=== PATIENT | male | born 1960 | race Caucasian/White ===

== ENCOUNTER 2021-03-15 12:08 | Inpatient (IN) ==
[2021-03-15] MEDS ORDERED: FUROSEMIDE 10 MG/ML VIAL IV ONE ×3 (12:29→14:14)
--- NOTE | 2021-03-15 12:45 | ERNOTE ---
Dyspnea - Date Date of Service: 03/15/21 - General Presenting Symptoms: shortness of breath Time Seen by Provider: 03/15/21 12:16 Source: patient Exam Limitations: no limitations - Immun/Allergies/Home Medications Allergies/Adverse Reactions: Allergies No Known Allergies Allergy (Verified 03/15/21 15:59) Home Medications: HOME MEDICATIONS atorvastatin 10 mg tablet 10 mg PO DAILY #30 tab 05/21/20 [Last Taken Unknown] dapagliflozin 10 mg-metformin ER 1,000 mg tablet,extended release 24hr 1 tab PO DAILY #30 ea 05/21/20 [Last Taken Unknown] lisinopril 10 mg tablet 10 mg PO DAILY #30 tab 05/21/20 [Last Taken Unknown] pioglitazone 45 mg tablet 45 mg PO DAILY #30 tab 05/21/20 [Last Taken Unknown] glipizide 2.5 mg tablet, extended release 24 hr 2.5 mg PO DAILY #30 tab 06/14/20 [Last Taken Unknown] hydrochlorothiazide 12.5 mg capsule 12.5 mg PO DAILY #30 cap 10/17/20 [Last Taken Unknown] - History of Present Illness Narrative: This patient is a 60-year-old gentleman who is here with shortness of breath. He indicates that he has been short of breath for the past year. He has seen Dr. Shannon for this in the past. They were discussing getting a work-up. He said the last week it has been worse. He has put on 20 pounds in the past 2 months. He went to the walk-in clinic today and was sent here because his saturation was 47%. He has not had a fever. He has a chronic cough. He quit smoking 20 years ago. He is not on oxygen at home. He denies any other cold symptoms. He has no chest pain or palpitations. He has chronic edema of the extremities. He takes HCTZ. Review of Systems - Review of Systems Constitutional: Absent: recent illness, fever, weight loss EYE: Present: blurred vision. Absent: double vision ENT: Absent: ear pain, nose congestion, nasal drainage, sore throat Respiratory: Present: shortness of breath, cough Cardiology: Absent: chest pain, palpitations Gastrointestinal/Abdominal: Absent: nausea, vomiting, diarrhea, constipation, abdominal pain Genitourinary: Absent: frequency, pain, dysuria, hematuria Musculoskeletal: Present: back pain - Chronic. Absent: neck pain Neurological: Absent: headache, dizziness/light-headedness Endocrine: Present: other - He is diabetic. Hematologic/Lymphatic: Present: other - No active bleeding Psych: Present: no symptoms reported Medical History (Last Reviewed 03/15/21 @ 12:41 by Nikolay Mendoza MD) Back pain (Chronic) Hypertension (Chronic) Obesity (Chronic) Diabetes (Chronic) Surgical History: Surgical History (Last Reviewed 03/15/21 @ 12:41 by Nikolay Mendoza MD) H/O colonoscopy Onset Date: ~2013 about 10 years ago- [place]. was normal. H/O hernia repair twice H[facility] Family History: Family History (Last Reviewed 03/15/21 @ 12:41 by Nikolay Mendoza MD) Mother Cancer not sure of what Father Cancer not sure of what Brother Cancer 3 of cancer: 1 lung, 1 throat, last one committed suicide when he found out he had cancer Social History: (Last Reviewed 03/15/21 @ 12:41 by Nikolay Mendoza MD) Social History: Marital status: current occupational status: retired current occupation: retired- [email or web address] Service: No Tobacco: Smoking Status: Former smoker how long ago did patient quit smoking: quit over 10 years ago Alcohol: alcohol intake: current Alcohol type: beer alcohol intake frequency: a few times a month details: 4-6 a day on the weekend Substance Use: substance use type: does not use Physical Exam - Physical Exam General Appearance: Present: alert, mild distress - He is able to speak in almost full sentences., obese Head Exam: Present: normal inspection, no evidence of injury Eye Exam: Normal inspection: bilateral Ears, Nose, Throat: Present: normal ENT inspection Neck: Present: normal inspection - Obese, supple Respiratory: Present: no accessory muscle use, lungs clear - Although limited by his decreased air movement.. Absent: no respiratory distress - Tachypneic, normal breath sounds - Markedly decreased breath sounds Cardiovascular/Chest: Present: regular rate, rhythm, no murmur Gastrointestinal/Abdominal: Present: nontender, abnormal bowel sounds - Difficult to auscultate., distended, other - Pitting edema of the lower half of the abdomen Back Exam: Present: normal inspection, other - Pitting edema of the lower back Extremity Exam: Present: non-tender, pedal edema - To the lower trunk Neurological Exam: Present: alert, oriented, normal mood/affect Skin Exam: Present: warm/dry, other - The skin is suki, possibly cyanotic. Progress - Results and Orders Patient's Lab Results:: I have reviewed the patient's lab results. Results and Orders: Laboratory Tests 03/15/21 03/15/21 03/15/21 12:29 12:40 12:40 WBC 13.8 H RBC 6.50 H Hgb 18.2 H Hct 59.9 H MCV 92.2 MCH 28.0 MCHC 30.4 L RDW 18.4 H Plt Count 292 MPV 9.9 Immature Gran % (Auto) 0.50 H Immature Gran # (Auto) 0.07 H Neutrophils % 87.5 H Lymphocytes % 4.6 L Monocytes % 7.2 Eosinophils % 0.0 Basophils % 0.2 Nucleated RBC % 0.0 Neutrophils # 12.1 H Lymphocytes # 0.64 L Monocytes # 1.0 Eosinophils # 0.0 Absolute Basophils 0.0 pCO2 89.8 H* pO2 73.5 L HCO3 29.1 H Total CO2 31.9 H Base Excess -3.8 L ABG pH 7.13 L* ABG O2 Sat (Measured) 88.7 L Sodium 132 Plasma Sodium 134 Potassium 5.3 H D Chloride 96 L Carbon Dioxide 29.0 Anion Gap 12.3 BUN 58 H D Creatinine 1.90 H D Est GFR (Non-Af Amer) 39 L D BUN/Creatinine Ratio 30.5 H Random Glucose 203 H Calcium 8.7 Calcium Adj for Albumin 9.1 Total Bilirubin 0.5 AST 16 ALT 33 Alkaline Phosphatase 59 Troponin I 0.033 B-Natriuretic Peptide 7066 H Total Protein 6.8 Albumin 3.1 L Laboratory Tests 03/15/21 12:40 D-Dimer 0.53 H - Vital Signs Patient's Vital Signs:: I have reviewed the patient's vital signs. - EKG EKG #1 EKG read: Interp. by me EKG Comments: Sinus rhythm with one PAC Rate [address]-T wave changes No old EKG in our system for comparison. - X-Ray X-Ray #1 X-Ray: chest Interpretation: Interp. by me X-ray Comments: Portable AP Markedly low lung volumes. Cardiomegaly No gross infiltrates Limited due to body habitus. Plan - Plan Plan: The patient initially appear suki or cyanotic. He was to kick Ilia but able to speak in an almost full sentences. He seemed to have normal mental functioning. The initial blood gas showed him to be asymptotic with CO2 retention. He was started on BiPAP. The repeat ABG showed minimal improvement. The patient himself appeared to be feeling better. He said that he was feeling better and had been able to sleep a little bit. He continued to have normal mentation. He was less dyspneic. He had received a total of 40 mg of Lasix. He had no urine output. He reported that he had been urinating normally. Urinary catheter, bladder scan or abdominal CT have not been done at this time. He was given an extra 40 mg of Lasix. Changes were made to his BiPAP settings. I spoke with the patient about hospitalization. He prefers to go home but is agreeable to staying in the hospital. I spoke with Dr. Meredith. He agreed to admit the patient. Departure Clinical Impression: Acute respiratory failure, Fluid retention, ELENA (acute kidney injury), Obesity Diabetes Qualifiers: Diabetes mellitus type: type 2 Diabetes mellitus director long term care insulin use: without assisted use Diabetes mellitus complication status: without complication Qualified Code(s): E11.9 - Type 2 diabetes mellitus without complications Hypertension Qualifiers: Hypertension type: essential hypertension Qualified Code(s): I10 - Essential (primary) hypertension - Departure Disposition: Still a patient Condition: Poor
[2021-03-15 12:48] LABS: Hematocrit 59.9 % (42.0-52.0); Hemoglobin 18.2 gm/dL (13.5-18.0); Mean Cell Volume 92.2 fl (78-100); Mean Corpuscular Hgb Conc 30.4 g/dl (32-36); Mean Platelet Volume 9.9 fl (8-11.3); Neutrophil # 12.1 K/mm3 (1.3-6.0); Neutrophil % 87.5 % (42-75.0); Platelet Count 292 K/mm3 (150-450); Red Cell Distribution Width 18.4 % (11.5-14.0); White Blood Count 13.8 K/mm3 (4.0-10.5)
[2021-03-15 13:09] LABS: Albumin * 3.1 gm/dl (3.4-5.0); Anion Gap 12.3 mmol/L (6.8-13.8); BUN/Creatinine Ratio 30.5 (9.0-21.6); Bilirubin, Total 0.5 mg/dL (0.0-1.1); Ca. Corrected For Albumin 9.1 mg/dL (8.4-10.2); Calcium * 8.7 mg/dL (7.9-10.9); Potassium 5.3 mmol/L (3.4-4.6); Total Protein 6.8 gm/dL (6.2-8.2)
[2021-03-15 13:10] LABS: Troponin I 0.033 ng/mL (0.00-0.10)
[2021-03-15] MEDS ORDERED: FUROSEMIDE 10 MG/ML VIAL ONE (13:56)
[2021-03-15] MEDS ORDERED: LEVOFLOXACIN 750 MG TABLET PO ONE (18:46)
--- NOTE | 2021-03-15 18:56 | HP ---
Chief Complaint - Chief Complaint Date of Service: 03/15/21 Time of Service: 18:56 Chief Complaint: Shortness of breath, hypoxia History of Present Illness: 60-year-old male presented to the hospital yesterday with shortness of breath and chronic cough. Initially seen in the walk-in clinic. Was found to be satting in the mid 40s to low 50s and was brought over to the ER. Patient with history of hyperlipidemia, diabetes, and hypertension. Initial work-up in the ER showed him to have an elevated white count of 13.8 with a left shift at 87.5. He also had an elevated hemoglobin at 18.2 and hematocrit of 59.9. Initial blood gas abdomen with a PCO2 of 89.8, and ABG O2 sat of 88.7 and a pH of 7.13. Patient has no known history of COPD but has a 16-smpa-reet history and likely is a chronic CO2 retainer. Patient had an elevated BNP at 7066 which is the only one on file. Patient with pitting edema 2+ just below his knees bilaterally. Patient states he is a chronic edema but has worsened over last 2 weeks. Patient states that he has been having issues with his breathing for the last couple of months but has seen an acute change in last 2 weeks. Patient was to be worked up by his PCP but this is not happened yet due to what ever reason. Patient's CHEM panel also showed him to have a pretty drastic change in his kidney function. Last labs were obtained over 3 months ago and showed him to have a normal creatinine and GFR and upon presentation his creatinine was 1.9 and his GFR was 39. Patient was started on BiPAP and repeat labs after a little over 3 hours on this showed his CO2 to come down to 77.6 and his pH to increase to 7.18. His ABG O2 sats also improved to 94.2. Patient's chest x-ray in the ER showed a right lower lobe consolidation concerning for pneumonia but I am unsure due to his body habitus and his poor intake if this is atelectasis. Patient has had a productive cough though but no fevers. Patient's picture concerning for likely new onset CHF of unknown type, likely a COPD with chronic hypercapnia, as well as possible pneumonia. Patient was admitted to the floor for acute respiratory distress and BiPAP was continued. Patient was also given 80 mg of IV Lasix in the ER in hopes to unload some of the fluid that is obviously on him to improve his respiratory status. When evaluated patient states that he was starting to feel better with the BiPAP and his breathing was becoming much better and is oxygen saturation returned to normal. Patient's blood sugar was also elevated in the ER at 203. Patient is alert vital signs are relatively within normal limits aside from some tachypnea which is understandable as he is try to block his CO2. Medical History (Last Reviewed 03/15/21 @ 12:41 by Nikolay Mendoza MD) Back pain (Chronic) Hypertension (Chronic) Obesity (Chronic) Diabetes (Chronic) Surgical History: Surgical History (Last Reviewed 03/15/21 @ 12:41 by Nikolay Mendoza MD) H/O colonoscopy Onset Date: ~2013 about 10 years ago- [place]. was normal. H/O hernia repair twice H/O knee surgery [facility] twice right knee Family History: Family History (Last Reviewed 03/15/21 @ 12:41 by Nikolay Mendoza MD) Mother Cancer not sure of what Father Cancer not sure of what Brother Cancer 3 of cancer: 1 lung, 1 throat, last one committed suicide when he found out he had cancer Social History: (Last Updated 03/15/21 @ 16:06 by Melyssa Parker RN) Social History: Marital status: current occupational status: retired current occupation: retired- [employer] Service: No Tobacco: Smoking Status: Former smoker how long ago did patient quit smoking: quit over 10 years ago Alcohol: alcohol intake: current Alcohol type: beer alcohol intake frequency: a few times a week details: 4-6 a day on the weekend Substance Use: substance use type: does not use Review Of Systems (GEN) - Review of Systems Generalized/Overall Review: Absent: Weakness, Chills, Fever EENTM: Present: No Symptoms Reported Respiratory: Present: Cough, Shortness of Breath. Absent: Wheezing Cardiac: Present: Edema - Bilateral legs, Palpitations. Absent: Chest Pain Abdominal: Present: No Symptoms Reported Genitourinary: Present: No Symptoms Reported Musculoskeletal: Present: No Symptoms Reported Neurological: Present: No Symptoms Reported Skin: Present: No Symptoms Reported Immunizations: IMMUNIZATION HX Immunizations Up to Date Yes History of Influenza Vaccine More Information Required Hx Pneumococcal Vaccination More Information Required Allergies/Adverse Reactions: Allergies Allergy/AdvReac Type Severity Reaction Status Date / Time No Known Allergies Allergy Verified 03/15/21 15:59 Home Medications: HOME MEDICATIONS atorvastatin 10 mg tablet 10 mg PO DAILY #30 tab 05/21/20 [Last Taken Unknown] dapagliflozin 10 mg-metformin ER 1,000 mg tablet,extended release 24hr 1 tab PO DAILY #30 ea 05/21/20 [Last Taken Unknown] lisinopril 10 mg tablet 10 mg PO DAILY #30 tab 05/21/20 [Last Taken Unknown] pioglitazone 45 mg tablet 45 mg PO DAILY #30 tab 05/21/20 [Last Taken Unknown] glipizide 2.5 mg tablet, extended release 24 hr 2.5 mg PO DAILY #30 tab 06/14/20 [Last Taken Unknown] hydrochlorothiazide 12.5 mg capsule 12.5 mg PO DAILY #30 cap 10/17/20 [Last Taken Unknown] Exam - Exam Vital Signs: Vital Signs - Last Taken Temp 36.7 C 03/15/21 15:30 Pulse 95 03/15/21 18:50 Resp 34 H 03/15/21 18:50 BP 110/62 03/15/21 15:30 Pulse Ox 97 03/15/21 18:52 Constitutional: Present: Alert, Oriented x3, Moderate distress - Due to respiratory distress, Obese - Central obesity ENT Exam: Present: hearing grossly normal. Absent: nasal congestion, nasal drainage Eye Exam: bilateral eye: normal inspection, EOMI Neck: Present: non-tender, supple Respiratory: Present: lungs clear, respiratory distress, decreased breath sounds - Due to body habitus. Absent: normal breath sounds, crackles Cardiovascular/Chest: Present: regular rate, rhythm, no murmur - Distant heart sounds Peripheral Pulses: dorsalis-pedis (R): 2+, dorsalis-pedis (L): 2+ Abdomen: Present: soft, nontender, nondistended Extremity: Present: lower extremity edema - 2+ pitting edema just below his knees bilaterally Skin Exam: Present: normal color, warm/dry, no cyanosis Neurologic: Present: no motor/sensory deficits, alert, oriented x 3 Appearance: Present: appropriate appearance, appropriate insight Eye contact: Present: cooperative, good eye contact Thoughts: Present: normal thought pattern, normal mood /affect Diagnostic Studies: Abnormal Lab Results 03/15/21 03/15/21 03/15/21 Range/Units 12:29 12:40 12:40 WBC 13.8 H (4.0-10.5) K/mm3 RBC 6.50 H (4.7-6.0) M/mm3 Hgb 18.2 H (13.5-18.0) gm/dL Hct 59.9 H (42.0-52.0) % MCHC 30.4 L (32-36) g/dl RDW 18.4 H (11.5-14.0) % Immature Gran % (Auto) 0.50 H (0.001-0.429) % Immature Gran # (Auto) 0.07 H (0.000-0.0310) K/mm3 Neutrophils % 87.5 H (42-75.0) % Lymphocytes % 4.6 L (20-51) % Neutrophils # 12.1 H (1.3-6.0) K/mm3 Lymphocytes # 0.64 L (1.5-3.5) k/mm3 D-Dimer (0.19-0.49) ugFEU/mL pCO2 89.8 H* (35.0-48.0) mmHg pO2 73.5 L (83.0-108.0) mmHg HCO3 29.1 H (21.0-28.0) mmol/L Total CO2 31.9 H (19.0-24.0) mmol/L Base Excess -3.8 L (-2.0-3.0) mmol/L ABG pH 7.13 L* (7.35-7.45) ABG O2 Sat (Measured) 88.7 L (94.0-98.0) % Potassium 5.3 H D (3.4-4.6) mmol/L Chloride 96 L (97-106) mmol/L BUN 58 H D (6-23) mg/dL Creatinine 1.90 H D (0.4-1.4) mg/dL Est GFR (Non-Af Amer) 39 L D (60-130) mL/min BUN/Creatinine Ratio 30.5 H (9.0-21.6) Random Glucose 203 H (70-110) mg/dL B-Natriuretic Peptide 7066 H (5-175) pg/mL Albumin 3.1 L (3.4-5.0) gm/dl 03/15/21 03/15/21 Range/Units 12:40 14:05 WBC (4.0-10.5) K/mm3 RBC (4.7-6.0) M/mm3 Hgb (13.5-18.0) gm/dL Hct (42.0-52.0) % MCHC (32-36) g/dl RDW (11.5-14.0) % Immature Gran % (Auto) (0.001-0.429) % Immature Gran # (Auto) (0.000-0.0310) K/mm3 Neutrophils % (42-75.0) % Lymphocytes % (20-51) % Neutrophils # (1.3-6.0) K/mm3 Lymphocytes # (1.5-3.5) k/mm3 D-Dimer 0.53 H (0.19-0.49) ugFEU/mL pCO2 77.6 H* (35.0-48.0) mmHg pO2 (83.0-108.0) mmHg HCO3 28.6 H (21.0-28.0) mmol/L Total CO2 31.0 H (19.0-24.0) mmol/L Base Excess -2.8 L (-2.0-3.0) mmol/L ABG pH 7.18 L* (7.35-7.45) ABG O2 Sat (Measured) (94.0-98.0) % Potassium (3.4-4.6) mmol/L Chloride (97-106) mmol/L BUN (6-23) mg/dL Creatinine (0.4-1.4) mg/dL Est GFR (Non-Af Amer) (60-130) mL/min BUN/Creatinine Ratio (9.0-21.6) Random Glucose (70-110) mg/dL B-Natriuretic Peptide (5-175) pg/mL Albumin (3.4-5.0) gm/dl Laboratory Results WBC 13.8 K/mm3 (4.0-10.5) H 03/15/21 12:40 RBC 6.50 M/mm3 (4.7-6.0) H 03/15/21 12:40 Hgb 18.2 gm/dL (13.5-18.0) H 03/15/21 12:40 Hct 59.9 % (42.0-52.0) H 03/15/21 12:40 MCV 92.2 fl (78-100) 03/15/21 12:40 MCH 28.0 pg (27-31) 03/15/21 12:40 MCHC 30.4 g/dl (32-36) L 03/15/21 12:40 RDW 18.4 % (11.5-14.0) H 03/15/21 12:40 Plt Count 292 K/mm3 (150-450) 03/15/21 12:40 MPV 9.9 fl (8-11.3) 03/15/21 12:40 Immature Gran % (Auto) 0.50 % (0.001-0.429) H 03/15/21 12:40 Immature Gran # (Auto) 0.07 K/mm3 (0.000-0.0310) H 03/15/21 12:40 Neutrophils % 87.5 % (42-75.0) H 03/15/21 12:40 Lymphocytes % 4.6 % (20-51) L 03/15/21 12:40 Monocytes % 7.2 % (0.0-9) 03/15/21 12:40 Eosinophils % 0.0 % (0.0-3.0) 03/15/21 12:40 Basophils % 0.2 % (0.0-1.0) 03/15/21 12:40 Nucleated RBC % 0.0 k/mm3 (0-1) 03/15/21 12:40 Neutrophils # 12.1 K/mm3 (1.3-6.0) H 03/15/21 12:40 Lymphocytes # 0.64 k/mm3 (1.5-3.5) L 03/15/21 12:40 Monocytes # 1.0 k/mm3 (0.0-1.0) 03/15/21 12:40 Eosinophils # 0.0 k/mm3 (0.0-0.7) 03/15/21 12:40 Absolute Basophils 0.0 k/mm3 (0.0-0.1) 03/15/21 12:40 D-Dimer 0.53 ugFEU/mL (0.19-0.49) H 03/15/21 12:40 pCO2 77.6 mmHg (35.0-48.0) H* 04/17/21 14:05 pO2 88.6 mmHg (83.0-108.0) 03/15/21 14:05 HCO3 28.6 mmol/L (21.0-28.0) H 03/15/21 14:05 Total CO2 31.0 mmol/L (19.0-24.0) H 03/15/21 14:05 Base Excess -2.8 mmol/L (-2.0-3.0) L 03/15/21 14:05 ABG pH 7.18 (7.35-7.45) L* 03/15/21 14:05 ABG O2 Sat (Measured) 94.2 % (94.0-98.0) 03/15/21 14:05 Sodium 132 mmol/L (132-142) 03/15/21 12:40 Plasma Sodium 134 mmol/L (130-142) 03/15/21 12:40 Potassium 5.3 mmol/L (3.4-4.6) H D 03/15/21 12:40 Chloride 96 mmol/L (97-106) L 03/15/21 12:40 Carbon Dioxide 29.0 mmol/L (24-32.6) 03/15/21 12:40 Anion Gap 12.3 mmol/L (6.8-13.8) 03/15/21 12:40 BUN 58 mg/dL (6-23) H D 03/15/21 12:40 Creatinine 1.90 mg/dL (0.4-1.4) H D 03/15/21 12:40 Est GFR (Non-Af Amer) 39 mL/min (60-130) L D 03/15/21 12:40 BUN/Creatinine Ratio 30.5 (9.0-21.6) H 03/15/21 12:40 Random Glucose 203 mg/dL (70-110) H 03/15/21 12:40 Calcium 8.7 mg/dL (7.9-10.9) 03/15/21 12:40 Calcium Adj for Albumin 9.1 mg/dL (8.4-10.2) 03/15/21 12:40 Total Bilirubin 0.5 mg/dL (0.0-1.1) 03/15/21 12:40 AST 16 U/L (0-48) 03/15/21 12:40 ALT 33 U/L (19-67) 03/15/21 12:40 Alkaline Phosphatase 59 U/L (50-170) 03/15/21 12:40 Troponin I 0.033 ng/mL (0.00-0.10) 03/15/21 12:40 B-Natriuretic Peptide 7066 pg/mL (5-175) H 03/15/21 12:40 Total Protein 6.8 gm/dL (6.2-8.2) 03/15/21 12:40 Albumin 3.1 gm/dl (3.4-5.0) L 03/15/21 12:40 SARS-CoV-2 (PCR) Not detected (NotDetected) 03/15/21 13:31 Assessment/Plan - Narrative Narrative: 60-year-old male with history of hypertension, hyperlipidemia, diabetes, morbid obesity admitted to the inpatient service on BiPAP due to acute respiratory hypercapnic failure. Initial CO2 was close to 90 and improved with repeat labs after being on BiPAP. Patient will be monitored and BiPAP settings will be adjusted to have him blow off his CO2 without dropping too low and shut down his respiratory drive. His saturations need to be kept at around 90 to 93%. Strict I's and O's ordered. Patient currently on lisinopril we will hold this due to his acute kidney injury. As far as his kidney injury, unsure of how quickly or how long its been like this as her last labs show him to be within normal limits back in November. Creatinine was 1.9 and GFR was 39. 80 mg IV Lasix was given to the patient in the ER, will monitor urine output. Concern for put patient going into cardiorenal syndrome due to his likely new onset congestive heart failure with underperfusion to his kidneys. Cannot give the patient fluids at this time due to his fluid overload and so hopefully diuresing will provide better perfusion to the kidneys and improve kidney status. Will repeat BMP in the morning. If patient does not diurese well than likely will add Bumex to IV Lasix. The patient's kidney function continues to deteriorate though then will likely need transfer to a facility that has nephrology on board for higher acuity of care. Will wait and see what labs show tomorrow and how patient clinically is doing. Repeat ABGs ordered for later today. As far as diabetes go, will resume his diabetic medication as well as start him on sliding scale insulin. Will monitor blood sugars before meals at bedtime. Unsure if patient COPD is playing a factor into his breathing or if this is all due to fluid overload. As his clinical picture looks to be more of a CHF issue, will hold on starting him on steroids at this time but will treat the possible underlying pneumonia with Levaquin. If we diurese him well and his fluid status improves but he still having respiratory distress then will start him on Solu- Medrol. Spirometry ordered to help inflate and open up his lungs. Of note patient's potassium was also mildly elevated at 5.3, will repeat labs in the morning. Patient will be getting insulin though so hopefully this will bring his potassium down. If not then will likely have to give him a dose of Kayexalate to help with this issue. Also ordered breathing treatment which should help with his potassium. Will fluid restrict patient to no more than 2000 cc of free fluid in the day. Covid test was negative in the ER. SCDs to be worn for DVT prophylaxis. Consistent carb diet ordered. Nurse to call questions or concerns. 1.5 hours of critical care time spent with patient in evaluating his clinical picture, getting his history, determining treatment plan, and dictation of this note. - Assessment/Plan (1) Acute hypercapnic respiratory failure Problem: Acute (2) Acute CHF Problem: Acute (3) Pneumonia Problem: Acute (4) COPD (chronic obstructive pulmonary disease) Problem: Acute (5) Fluid retention Problem: Acute (6) ELENA (acute kidney injury) Problem: Acute (7) BMI 40.0-44.9, adult Problem: Chronic (8) Hypertension Problem: Chronic Qualifiers: Hypertension type: essential hypertension Qualified Code(s): I10 - Essential (primary) hypertension (9) Obesity Problem: Chronic (10) Diabetes Problem: Chronic Qualifiers: Diabetes mellitus type: type 2 Diabetes mellitus longterm insulin use: without terminologist use Diabetes mellitus complication status: without complication Qualified Code(s): E11.9 - Type 2 diabetes mellitus without complications
[2021-03-15] MEDS: INSULIN LISPRO 100 UNITS/ML VIAL SC SCH (20:05)
[2021-03-16 06:18] LABS: Hematocrit 55.2 % (42.0-52.0); Hemoglobin 16.4 gm/dL (13.5-18.0); Mean Cell Volume 93.1 fl (78-100); Mean Corpuscular Hemoglobin 27.7 pg (27-31); Mean Corpuscular Hgb Conc 29.7 g/dl (32-36); Mean Platelet Volume 10.7 fl (8-11.3); Platelet Count 193 K/mm3 (150-450); Red Blood Count 5.93 M/mm3 (4.7-6.0); Red Cell Distribution Width 17.7 % (11.5-14.0); White Blood Count 13.8 K/mm3 (4.0-10.5)
[2021-03-16 06:26] LABS: Anion Gap 9.7 mmol/L (6.8-13.8); BUN/Creatinine Ratio 31.5 (9.0-21.6); Calcium * 7.8 mg/dL (7.9-10.9); Carbon Dioxide 31.7 mmol/L (24-32.6); Estimated Creat Clear 31.6; Potassium 5.4 mmol/L (3.4-4.6)
[2021-03-16] MEDS: INSULIN LISPRO 100 UNITS/ML VIAL SC SCH ×4 (06:35→20:51)
[2021-03-16 06:39] LABS: Total Cells Counted 100
[2021-03-16 06:43] LABS: Lymphocyte 11 % (20-51); Monocyte 12 % (0-9); Neutrophil 77 % (42-75); Neutrophil # 10.6 K/mm3 (1.3-6.0); Platelet Estimate Normal (NORMAL); RBC Morphology Normal (NORMAL)
[2021-03-16] MEDS: PIOGLITAZONE HCL 15 MG TABLET PO SCH (08:13)
[2021-03-16] MEDS: HYDROCHLOROTHIAZIDE 12.5 MG CAPSULE PO SCH (08:13)
[2021-03-16] MEDS: glipiZIDE 2.5 MG TAB.SR.24H PO SCH (08:14)
[2021-03-16] MEDS ORDERED: LISINOPRIL 10 MG TABLET PO SCH (09:00)
[2021-03-16] MEDS ORDERED: FUROSEMIDE 10 MG/ML VIAL IV ONE (09:27)
[2021-03-16] MEDS ORDERED: ALBUTEROL SULFATE/IPRATROPIUM 3 ML NEBU IH ONE (09:30)
[2021-03-16] MEDS ORDERED: SODIUM POLYSTYRENE SULFON/SORB 15 G/60 ML ORAL.SUSP PO ONE (09:30)
[2021-03-16] MEDS: BUMETANIDE 0.25 MG/ML VIAL IV SCH (10:22)
--- NOTE | 2021-03-16 12:33 | PN ---
Subjective - Date and Time Seen Date: 03/16/21 Time: 12:20 Subjective Narrative: Patient is feeling much better today and is breathing easier. Repeat blood gases this morning much improved. Did increase his inspiratory pressure last night after being called by RT for worsening CO2 as he was down to 77 but trended upward to 88. ABG this morning showed his CO2 to be down to 58.7 and his pH was up to 7.27. His O2 sats are appropriate. We will make sure we do not increase his oxygen too much or decrease his CO2 too much to decrease his respiratory drive so this we monitor closely. Otherwise he is feeling better Patient's kidney function did not improve as hoped and his diuresis was negligible over the last 24 hours. We will give another dose of IV Lasix today and add Bumex to this to see if we cannot improve this. Of note patient was having some hypoglycemic episodes overnight but responded well with oral intake. No D5 was needed. His vital signs were stable and has been afebrile. Will transition from BiPAP to oxygen via nasal cannula to maintain sats between 90 to 94%. Objective - Review of Systems Generalized/Overall Review: Denies: Weakness, Chills, Fever EENTM: Reports: No Symptoms Reported Respiratory: Reports: Cough, Shortness of Breath Cardiac: Reports: Edema - Unchanged. Denies: Chest Pain Abdominal: Reports: No Symptoms Reported Genitourinary Symptoms: Reports: No Symptoms Reported Musculoskeletal Complaints: Reports: No Symptoms Reported Neurological: Reports: No Symptoms Reported Skin: Reports: No Symptoms Reported - Vitals Vitals: Last Vital Signs Temp 36.3 C 03/16/21 10:17 Pulse 82 03/16/21 11:29 Resp 28 H 03/16/21 11:29 BP 100/65 03/16/21 11:29 Pulse Ox 92 L 03/16/21 11:29 - Abnormal Lab Findings Abnormal Lab Findings: Abnormal Lab Results 03/15/21 03/15/21 03/15/21 Range/Units 12:29 12:40 12:40 WBC 13.8 H (4.0-10.5) K/mm3 RBC 6.50 H (4.7-6.0) M/mm3 Hgb 18.2 H (13.5-18.0) gm/dL Hct 59.9 H (42.0-52.0) % MCHC 30.4 L (32-36) g/dl RDW 18.4 H (11.5-14.0) % Immature Gran % (Auto) 0.50 H (0.001-0.429) % Immature Gran # (Auto) 0.07 H (0.000-0.0310) K/mm3 Neutrophils % 87.5 H (42-75.0) % Neutrophils % (Manual) (42-75) % Lymphocytes % 4.6 L (20-51) % Lymphocytes % (Manual) (20-51) % Monocytes % (Manual) (0-9) % Neutrophils # 12.1 H (1.3-6.0) K/mm3 Neutrophils # (Manual) (1.3-6.0) K/mm3 Lymphocytes # 0.64 L (1.5-3.5) k/mm3 Monocytes # (Manual) (0.0-1.0) k/mm3 D-Dimer (0.19-0.49) ugFEU/mL pCO2 89.8 H* (35.0-48.0) mmHg pO2 73.5 L (83.0-108.0) mmHg HCO3 29.1 H (21.0-28.0) mmol/L Total CO2 31.9 H (19.0-24.0) mmol/L Base Excess -3.8 L (-2.0-3.0) mmol/L ABG pH 7.13 L* (7.35-7.45) ABG O2 Sat (Measured) 88.7 L (94.0-98.0) % Potassium 5.3 H D (3.4-4.6) mmol/L Chloride 96 L (97-106) mmol/L BUN 58 H D (6-23) mg/dL Creatinine 1.90 H D (0.4-1.4) mg/dL Est GFR (Non-Af Amer) 39 L D (60-130) mL/min BUN/Creatinine Ratio 30.5 H (9.0-21.6) Random Glucose 203 H (70-110) mg/dL Calcium (7.9-10.9) mg/dL B-Natriuretic Peptide 7066 H (5-175) pg/mL Albumin 3.1 L (3.4-5.0) gm/dl 03/15/21 03/15/2121 Range/Units 12:40 14:05 20:05 WBC (4.0-10.5) K/mm3 RBC (4.7-6.0) M/mm3 Hgb (13.5-18.0) gm/dL Hct (42.0-52.0) % MCHC (32-36) g/dl RDW (11.5-14.0) % Immature Gran % (Auto) (0.001-0.429) % Immature Gran # (Auto) (0.000-0.0310) K/mm3 Neutrophils % (42-75.0) % Neutrophils % (Manual) (42-75) % Lymphocytes % (20-51) % Lymphocytes % (Manual) (20-51) % Monocytes % (Manual) (0-9) % Neutrophils # (1.3-6.0) K/mm3 Neutrophils # (Manual) (1.3-6.0) K/mm3 Lymphocytes # (1.5-3.5) k/mm3 Monocytes # (Manual) (0.0-1.0) k/mm3 D-Dimer 0.53 H (0.19-0.49) ugFEU/mL pCO2 77.6 H* 80.8 H* (35.0-48.0) mmHg pO2 (83.0-108.0) mmHg HCO3 28.6 H 30.6 H (21.0-28.0) mmol/L Total CO2 31.0 H 33.1 H (19.0-24.0) mmol/L Base Excess -2.8 L (-2.0-3.0) mmol/L ABG pH 7.18 L* 7.20 L (7.35-7.45) ABG O2 Sat (Measured) 93.3 L (94.0-98.0) % Potassium (3.4-4.6) mmol/L Chloride (97-106) mmol/L BUN (6-23) mg/dL Creatinine (0.4-1.4) mg/dL Est GFR (Non-Af Amer) (60-130) mL/min BUN/Creatinine Ratio (9.0-21.6) Random Glucose (70-110) mg/dL Calcium (7.9-10.9) mg/dL B-Natriuretic Peptide (5-175) pg/mL Albumin (3.4-5.0) gm/dl 03/16/21 03/16/21 03/16/21 Range/Units 06:10 06:10 08:55 WBC 13.8 H (4.0-10.5) K/mm3 RBC (4.7-6.0) M/mm3 Hgb (13.5-18.0) gm/dL Hct 55.2 H (42.0-52.0) % MCHC 29.7 L (32-36) g/dl RDW 17.7 H (11.5-14.0) % Immature Gran % (Auto) (0.001-0.429) % Immature Gran # (Auto) (0.000-0.0310) K/mm3 Neutrophils % (42-75.0) % Neutrophils % (Manual) 77 H (42-75) % Lymphocytes % (20-51) % Lymphocytes % (Manual) 11 L (20-51) % Monocytes % (Manual) 12 H (0-9) % Neutrophils # (1.3-6.0) K/mm3 Neutrophils # (Manual) 10.6 H (1.3-6.0) K/mm3 Lymphocytes # (1.5-3.5) k/mm3 Monocytes # (Manual) 1.7 H (0.0-1.0) k/mm3 D-Dimer (0.19-0.49) ugFEU/mL pCO2 58.7 H (35.0-48.0) mmHg pO2 (83.0-108.0) mmHg HCO3 (21.0-28.0) mmol/L Total CO2 27.9 H (19.0-24.0) mmol/L Base Excess -2.2 L (-2.0-3.0) mmol/L ABG pH 7.27 L (7.35-7.45) ABG O2 Sat (Measured) (94.0-98.0) % Potassium 5.4 H (3.4-4.6) mmol/L Chloride (97-106) mmol/L BUN 68 H (6-23) mg/dL Creatinine 2.16 H (0.4-1.4) mg/dL Est GFR (Non-Af Amer) 33 L (60-130) mL/min BUN/Creatinine Ratio 31.5 H (9.0-21.6) Random Glucose 115 H D (70-110) mg/dL Calcium 7.8 L (7.9-10.9) mg/dL B-Natriuretic Peptide (5-175) pg/mL Albumin (3.4-5.0) gm/dl - Exam Constitutional: Present: Alert, Oriented x3, Mild distress - Improving, Morbidly obese Respiratory: Present: no respiratory distress, decreased breath sounds. Absent: crackles Cardiovascular/Chest: Present: regular rate, rhythm, no murmur - Decreased heart sounds Abdomen: Present: soft, nontender, nondistended, other - Essential obesity Extremity: Present: non-tender, lower extremity edema - 2+ pitting edema just below his knees bilaterally Skin Exam: Present: normal color, no cyanosis Neurologic: Present: alert, oriented x 3 Appearance: Present: appropriate appearance, appropriate insight Eye contact: Present: cooperative, good eye contact Thoughts: Present: normal thought pattern, normal mood /affect Assessment/Plan Plan Narrative: Patient here for acute hypercapnic respiratory distress, clinically improving from breathing standpoint. Kidney function is not responding as hoped. We will continue current treatment plan as described below with adjustments to be made as needed. Repeat ABG and BMP this evening. Patient longer on BiPAP, currently satting well with nasal cannula. Spirometry, duo nebs, antibiotics ordered. Vital signs be monitored. Consistent carb diet ordered. SCDs for DVT prophylaxis. Nurse to call questions or concerns. 1 hour critical care time spent with patient today upon evaluation, reviewing labs, adjusting treatment plan, dictating this note, and placing orders. - Problems/Diagnosis (1) Acute hypercapnic respiratory failure Problem: Acute Narrative: Improved with BiPAP, he likely has chronic hypercapnia but do not have a baseline for him. CO2 down to 37. BiPAP stopped for the time being with repeat ABGs this evening. Breathing much better though and felt much better. (2) Acute CHF Problem: Acute Narrative: Unknown type. Echocardiogram ordered today. I think majority of his respiratory distress is secondary to fluid overload from this issue but patient does likely have underlying COPD and a possible pneumonia. Patient did not diurese as expected with IV Lasix. Repeat IV Lasix at 20 mg today as well as 1 mg of Bumex. Patient's kidney function continues to deteriorate and likely transfer to [facility]. (3) Pneumonia Problem: Acute Narrative: Possible infiltrate seen on x-ray, currently being treated with Levaquin. Patient is afebrile and breathing status has improved with the BiPAP. Again the most of his issues are from his CHF exacerbation more so than a pulmonary process. (4) COPD (chronic obstructive pulmonary disease) Problem: Acute Narrative: Not officially diagnosed with COPD but patient has [id number] history. DuoNebs ordered for breathing treatment. Patient is on Levaquin for this as well. Currently holding steroids until I can diurese him to see if this improves his respiratory status. If he has appropriate diuresis and still st ruggling with breathing then will start him on Solu-Medrol but will wait another 12 to 24 hours before making this decision. Patient is diabetic and not on load on steroids if not needed (5) Fluid retention Problem: Acute (6) ELENA (acute kidney injury) Problem: Acute Narrative: Patient's previous kidney function was well within normal limits 3 months ago with a creatinine of 0.98 and a GFR of 83. Upon presentation with this day patient's creatinine was up to 1.9 and his GFR was down to 39. Repeat creatinine today came back at 2.16 with a GFR of 33. Again I think this is likely due to cardiorenal syndrome and hoping to diurese him in order to improve heart function and therefore improve kidney perfusion. If patient's function continues to deteriorate though the patient will be transferred to a facility with nephrology on board. Patient is a diabetic as well. Lasix and Bumex ordered today with a repeat BMP, back this evening. Strict I's and O's currently being monitored. (7) BMI 40.0-44.9, adult Problem: Chronic (8) Hypertension Problem: Chronic Qualifiers: Hypertension type: essential hypertension Qualified Code(s): I10 - Es sential (primary) hypertension Narrative: Well within normal limits. Lisinopril held at this time. (9) Diabetes Problem: Chronic Qualifiers: Diabetes mellitus type: type 2 Diabetes mellitus terminal worker insulin use: without terminal worker use Diabetes mellitus complication status: without complication Qualified Code(s): E11.9 - Type 2 diabetes mellitus without complications Narrative: Blood sugars are fairly well controlled he did have an episode of hypoglycemia last night requiring some oral intake to bring that up. D5 was not needed. Will decrease his insulin some today as I think this is likely due to his kidney function. We will continue to monitor sugars a CHS. (10) Obesity Problem: Chronic (11) Cardiorenal syndrome Problem: Acute Narrative: As stated above.
[2021-03-16] MEDS: LEVOFLOXACIN 750 MG TABLET PO SCH (17:22)
[2021-03-16 18:17] LABS: BUN/Creatinine Ratio 40.1 (9.0-21.6); Calcium * 7.2 mg/dL (7.9-10.9); Carbon Dioxide 27.3 mmol/L (24-32.6); Estimated Creat Clear 39.7; Potassium 4.3 mmol/L (3.4-4.6)
[2021-03-16] MEDS: SIMVASTATIN 20 MG TABLET PO SCH (20:42)
[2021-03-17 06:50] LABS: Hematocrit 56.3 % (42.0-52.0); Hemoglobin 16.8 gm/dL (13.5-18.0); Mean Cell Volume 92.1 fl (78-100); Mean Corpuscular Hemoglobin 27.5 pg (27-31); Mean Corpuscular Hgb Conc 29.8 g/dl (32-36); Mean Platelet Volume 9.9 fl (8-11.3); Neutrophil # 8.8 K/mm3 (1.3-6.0); Neutrophil % 79.2 % (42-75.0); Platelet Count 237 K/mm3 (150-450); Red Blood Count 6.11 M/mm3 (4.7-6.0); Red Cell Distribution Width 17.1 % (11.5-14.0); White Blood Count 11.1 K/mm3 (4.0-10.5)
[2021-03-17 07:01] LABS: Anion Gap 5.9 mmol/L (6.8-13.8); BUN/Creatinine Ratio 45.6 (9.0-21.6); Calcium * 8.4 mg/dL (7.9-10.9); Carbon Dioxide 35.3 mmol/L (24-32.6); Estimated Creat Clear 43.2; Potassium 5.2 mmol/L (3.4-4.6)
[2021-03-17] MEDS: INSULIN LISPRO 100 UNITS/ML VIAL SC SCH ×4 (07:14→21:55)
[2021-03-17] MEDS: glipiZIDE 2.5 MG TAB.SR.24H PO SCH (08:16)
[2021-03-17] MEDS: HYDROCHLOROTHIAZIDE 12.5 MG CAPSULE PO SCH (08:17)
[2021-03-17] MEDS: FUROSEMIDE 10 MG/ML VIAL IV SCH (08:29)
[2021-03-17] MEDS: BUMETANIDE 0.25 MG/ML VIAL IV SCH (08:29)
[2021-03-17] MEDS: PIOGLITAZONE HCL 15 MG TABLET PO SCH (08:29)
[2021-03-17] MEDS: LEVOFLOXACIN 750 MG TABLET PO SCH (17:37)
--- NOTE | 2021-03-17 21:35 | PN ---
Subjective - Date and Time Seen Date: 03/17/21 Time: 21:29 Subjective Narrative: Patient was examined this morning. Patient was in much better spirits and states he is feeling much better. Currently have an echocardiogram at bedside. Patient not in respiratory distress at this time but still has significant swelling in his legs. His kidney function is much better today. His blood pressure is very low though and so holding blood pressure medicines and diuretics at this time. Patient CO2 continues to fluctuate and so BiPAP is still needed, explained the patient he is a chronic CO2 retainer most likely and that this will improve as we are able to diurese him more and get the fluid off of him but until then he will be back and forth on the BiPAP as well as oxygen via nasal cannula. Hopefully his blood pressure is much more stable tomorrow and we can resume Lasix and get his kidney function more appropriate. Patient is down roughly 7 pounds. No acute events overnight. Repeat ABG this evening is ordered. Objective - Review of Systems Generalized/Overall Review: Denies: Weakness, Chills, Fever EENTM: Reports: No Symptoms Reported Respiratory: Reports: Cough, Shortness of Breath. Denies: Wheezing Cardiac: Reports: Edema. Denies: Chest Pain Abdominal: Reports: No Symptoms Reported Genitourinary Symptoms: Reports: No Symptoms Reported Musculoskeletal Complaints: Reports: No Symptoms Reported Neurological: Reports: No Symptoms Reported Skin: Reports: No Symptoms Reported Endocrine: Reports: No Symptoms Reported - Vitals Vitals: Last Vital Signs Temp 37 C 03/17/21 18:27 Pulse 100 03/17/21 18:27 Resp 20 03/17/21 18:27 BP 116/52 03/17/21 18:27 Pulse Ox 93 03/17/21 18:27 - Abnormal Lab Findings Abnormal Lab Findings: Abnormal Lab Results 03/17/21 03/17/21 03/17/21 Range/Units 05:57 06:45 06:45 WBC 11.1 H (4.0-10.5) K/mm3 RBC 6.11 H (4.7-6.0) M/mm3 Hct 56.3 H (42.0-52.0) % MCHC 29.8 L (32-36) g/dl RDW 17.1 H (11.5-14.0) % Immature Gran % (Auto) 0.50 H (0.001-0.429) % Immature Gran # (Auto) 0.06 H (0.000-0.0310) K/mm3 Neutrophils % 79.2 H (42-75.0) % Lymphocytes % 8.6 L (20-51) % Monocytes % 10.9 H (0.0-9) % Neutrophils # 8.8 H (1.3-6.0) K/mm3 Lymphocytes # 0.95 L (1.5-3.5) k/mm3 Monocytes # 1.2 H (0.0-1.0) k/mm3 pCO2 69.5 H (35.0-48.0) mmHg pO2 81.2 L (83.0-108.0) mmHg HCO3 32.5 H (21.0-28.0) mmol/L Total CO2 34.7 H (19.0-24.0) mmol/L Base Excess 3.1 H (-2.0-3.0) mmol/L ABG pH 7.29 L (7.35-7.45) Potassium 5.2 H D (3.4-4.6) mmol/L Carbon Dioxide 35.3 H (24-32.6) mmol/L Anion Gap 5.9 L (6.8-13.8) mmol/L BUN 72 H (6-23) mg/dL Creatinine 1.58 H (0.4-1.4) mg/dL Est GFR (Non-Af Amer) 48 L (60-130) mL/min BUN/Creatinine Ratio 45.6 H (9.0-21.6) - Exam Constitutional: Present: Alert, Oriented x3, Cooperative, Morbidly obese ENT Exam: Present: hearing grossly normal Neck: Present: non-tender, supple Respiratory: Present: lungs clear, decreased breath sounds. Absent: respiratory distress Cardiovascular/Chest: Present: regular rate, rhythm, no murmur Abdomen: Present: soft, nontender, nondistended, obese Extremity: Present: lower extremity edema - Unchanged from previous exam. Absent: leg cramps Skin Exam: Present: normal color, warm/dry Appearance: Present: appropriate appearance, appropriate insight Eye contact: Present: cooperative, good eye contact Thoughts: Present: normal thought pattern, normal mood /affect Assessment/Plan Plan Narrative: Patient continues to improve from a respiratory standpoint the patient still requires BiPAP as his CO2 fluctuates and he becomes hypoxic at times. CO2 this morning was 69.5 on ABG. His acidosis has improved though and is up to 7.29, initially was 7.13. His kidney function is also continue to improve where at his [facility] his creatinine was 2.16 is now currently down to 1.58. GFR is up to 48 from 33. Currently holding diuretics due to blood pressure. Patient is down 7 pounds. I think most of his respiratory distress and fluid overload is secondary to new onset congestive heart failure. Awaiting echo results. Cardiorenal syndrome appears to be improving though with improvement of his renal function. We will continue BiPAP and oxygen via nasal cannula as needed. Repeat ABGs this evening. BiPAP settings are currently 18/7, may need to decrease his inspiratory pressure to 15 but will wait and see what his ABG this evening looks like. We will repeat CBC and CMP in the morning. Patient's white count is downtrending from 13.8 down 11.1. He is on Levaquin for possible pneumonia. Continue current treatment plan otherwise. SCDs for DVT prophylaxis ordered. Encourage ambulation and incentive spirometry. Blood sugars much better controlled with sliding scale insulin. - Problems/Diagnosis (1) Acute hypercapnic respiratory failure Problem: Acute (2) Acute CHF Problem: Acute (3) Pneumonia Problem: Acute (4) COPD (chronic obstructive pulmonary disease) Problem: Acute (5) Fluid retention Problem: Acute (6) ELENA (acute kidney injury) Problem: Acute (7) BMI 40.0-44.9, adult Problem: Chronic (8) Hypertension Problem: Chronic Qualifiers: Hypertension type: essential hypertension Qualified Code(s): I10 - [place]ent[place] l (primary) hypertension (9) Diabetes Problem: Chronic Qualifiers: Diabetes mellitus type: type 2 Diabetes mellitus mcfp insulin use: without mcfp use Diabetes mellitus complication status: without complication Qualified Code(s): E11.9 - Type 2 diabetes mellitus without complications (10) Obesity Problem: Chronic (11) Cardiorenal syndrome Problem: Acute
[2021-03-17] MEDS: SIMVASTATIN 20 MG TABLET PO SCH (22:02)
[2021-03-17] MEDS ORDERED: FUROSEMIDE 10 MG/ML VIAL IV ONE (22:23)
[2021-03-17] MEDS ORDERED: BUMETANIDE 0.25 MG/ML VIAL IV SCH (22:30)
[2021-03-18 06:50] LABS: Hemoglobin 16.8 gm/dL (13.5-18.0); Mean Cell Volume 91.8 fl (78-100); Mean Corpuscular Hemoglobin 27.5 pg (27-31); Mean Platelet Volume 9.9 fl (8-11.3); Neutrophil # 7.7 K/mm3 (1.3-6.0); Neutrophil % 77.5 % (42-75.0); Platelet Count 267 K/mm3 (150-450); Red Cell Distribution Width 17.1 % (11.5-14.0)
[2021-03-18 07:09] LABS: Anion Gap 4.6 mmol/L (6.8-13.8); BUN/Creatinine Ratio 47.6 (9.0-21.6); Bilirubin, Total 0.7 mg/dL (0.0-1.1); Ca. Corrected For Albumin 9.5 mg/dL (8.4-10.2); Carbon Dioxide 39.3 mmol/L (24-32.6); Potassium 4.9 mmol/L (3.4-4.6); Total Protein 6.6 gm/dL (6.2-8.2)
[2021-03-18] MEDS: INSULIN LISPRO 100 UNITS/ML VIAL SC SCH ×4 (07:57→21:41)
[2021-03-18] MEDS: glipiZIDE 2.5 MG TAB.SR.24H PO SCH (08:52)
[2021-03-18] MEDS: PIOGLITAZONE HCL 15 MG TABLET PO SCH (08:52)
[2021-03-18] MEDS: HYDROCHLOROTHIAZIDE 12.5 MG CAPSULE PO SCH (08:52)
[2021-03-18] MEDS: BUMETANIDE 0.25 MG/ML VIAL IV SCH (08:52)
[2021-03-18] MEDS: FUROSEMIDE 10 MG/ML VIAL IV SCH (08:52)
--- NOTE | 2021-03-18 09:54 | ECHO ---
This report is available in the EMR
[2021-03-18] MEDS ORDERED: METHYLPREDNISOLONE SOD SUCC/PF 40 MG/ML VIAL IV SCH (10:00)
[2021-03-18] MEDS: METHYLPREDNISOLONE SOD SUCC/PF 125 MG/2 ML VIAL IV SCH ×3 (10:58→21:37)
[2021-03-18] MEDS: LEVOFLOXACIN 750 MG TABLET PO SCH (17:15)
[2021-03-18] MEDS ORDERED: ALBUTEROL SULFATE/IPRATROPIUM 3 ML NEBU IH PRN (18:49)
--- NOTE | 2021-03-18 18:53 | PN ---
Subjective - Date and Time Seen Date: 03/18/21 Time: 18:37 Subjective Narrative: Patient required BiPAP last night as his blood gas shows CO2 to continue to be in the upper 70s. Repeat ABGs showed his CO2 dropped down to 71. I think patient will need to be on BiPAP after discharge but will need to be worked up in the outpatient setting. His kidney function has returned to normal though which is good. His other vital signs been stable. His pH has also normalized on ABG. Today patient is breathing better and talking better but still requiring oxygen to maintain sats. Objective - Review of Systems Generalized/Overall Review: Denies: Weakness, Chills, Fever EENTM: Reports: No Symptoms Reported Respiratory: Reports: Shortness of Breath. Denies: Cough Cardiac: Reports: Edema - Improved some, washer and crusher tender Abdominal: Reports: No Symptoms Reported Genitourinary Symptoms: Reports: No Symptoms Reported Musculoskeletal Complaints: Reports: No Symptoms Reported Neurological: Reports: No Symptoms Reported Skin: Reports: No Symptoms Reported Endocrine: Reports: No Symptoms Reported - Vitals Vitals: Last Vital Signs Temp 36.9 C 03/18/21 18:30 Pulse 100 03/18/21 18:30 Resp 20 03/18/21 18:30 BP 124/54 03/18/21 18:30 Pulse Ox 95 03/18/21 18:30 - Abnormal Lab Findings Abnormal Lab Findings: Abnormal Lab Results 03/17/21 03/18/21 03/18/21 Range/Units 21:32 06:30 06:30 RBC 6.10 H (4.7-6.0) M/mm3 Hct 56.0 H (42.0-52.0) % MCHC 30.0 L (32-36) g/dl RDW 17.1 H (11.5-14.0) % Immature Gran # (Auto) 0.04 H (0.000-0.0310) K/mm3 Neutrophils % 77.5 H (42-75.0) % Lymphocytes % 9.2 L (20-51) % Monocytes % 12.3 H (0.0-9) % Neutrophils # 7.7 H (1.3-6.0) K/mm3 Lymphocytes # 0.92 L (1.5-3.5) k/mm3 Monocytes # 1.2 H (0.0-1.0) k/mm3 pCO2 78.3 H* (35.0-48.0) mmHg pO2 (83.0-108.0) mmHg HCO3 33.5 H (21.0-28.0) mmol/L Total CO2 35.9 H (19.0-24.0) mmol/L Base Excess 3.1 H (-2.0-3.0) mmol/L ABG pH 7.25 L (7.35-7.45) ABG O2 Sat (Measured) (94.0-98.0) % Potassium 4.9 H (3.4-4.6) mmol/L Carbon Dioxide 39.3 H (24-32.6) mmol/L Anion Gap 4.6 L (6.8-13.8) mmol/L BUN 60 H (6-23) mg/dL BUN/Creatinine Ratio 47.6 H (9.0-21.6) Albumin 3.0 L (3.4-5.0) gm/dl 03/18/21 Range/Units 08:55 RBC (4.7-6.0) M/mm3 Hct (42.0-52.0) % MCHC (32-36) g/dl RDW (11.5-14.0) % Immature Gran # (Auto) (0.000-0.0310) K/mm3 Neutrophils % (42-75.0) % Lymphocytes % (20-51) % Monocytes % (0.0-9) % Neutrophils # (1.3-6.0) K/mm3 Lymphocytes # (1.5-3.5) k/mm3 Monocytes # (0.0-1.0) k/mm3 pCO2 71.0 H* (35.0-48.0) mmHg pO2 55.7 L (83.0-108.0) mmHg HCO3 38.9 H (21.0-28.0) mmol/L Total CO2 41.0 H (19.0-24.0) mmol/L Base Excess 9.6 H (-2.0-3.0) mmol/L ABG pH (7.35-7.45) ABG O2 Sat (Measured) 86.6 L (94.0-98.0) % Potassium (3.4-4.6) mmol/L Carbon Dioxide (24-32.6) mmol/L Anion Gap (6.8-13.8) mmol/L BUN (6-23) mg/dL BUN/Creatinine Ratio (9.0-21.6) Albumin (3.4-5.0) gm/dl - Exam Constitutional: Present: Alert, Oriented x3, Cooperative, Mild distress - S hortness of breath with no oxygen on Respiratory: Present: lungs clear, decreased breath sounds Cardiovascular/Chest: Present: regular rate, rhythm, no murmur, edema - 2+ pitting edema just below knees but not as taut as previous Abdomen: Present: Normal bowel sounds, soft, nontender, nondistended Skin Exam: Present: normal color, warm/dry Appearance: Present: appropriate appearance, appropriate insight Eye contact: Present: cooperative, good eye contact Assessment/Plan Plan Narrative: Patient still acutely hypercapnic on blood gas. Breathing much better though no longer distress. Echo came back showing minimal diastolic dysfunction but no systolic dysfunction and preserved ejection fraction. Thinking his breathing issues may be more related now to COPD than fluid overload though he still has b een significantly overloaded as seen by the edema in his lungs and his pulmonary congestion seen on x-ray. Will start on Solu-Medrol today and continue Levaquin. Breathing treatments ordered as needed. Kidney function returned to normal. GFR back up and creatinine in the 1.2. We will continue Lasix now, discontinue Bumex. Continue with strict I's and O's. Patient will likely need positive pressure therapy at home. I think this is likely a COPD issue as well and when he is discharged CPAP has been considered and ruled out as patient will likely need BiPAP to help maintain appropriate le vels of his CO2 which CPAP on accommodate. Tonight patient is to only be on 2 L nasal cannula with repeat ABG in the morning. The rest of the vital signs are stable and he feels well otherwise. He still has significant desat issues when he is up and about without oxygen on. Recovers quickly though with oxygen via nasal cannula. Patient blood sugars have been stable with sliding scale insulin. Expect his sugars to increase though with the Solu-Medrol. Will likely need to increase his sliding scale to high level for better control but will adjust in the morning after I am able to see with the Solu-Medrol dose to him. Otherwise continue current treatment plan with likely discharge home soon. Nurse will call questions or concerns 1 hour critical care time still patient today adjust treatment plan and determining ongoing treatment moving forward as well as time spent with case management and dictating his note. - Problems/Diagnosis (1) Acute hypercapnic respiratory failure Problem: Acute (2) Acute CHF Problem: Acute (3) Pneumonia Problem: Acute (4) COPD (chronic obstructive pulmonary disease) Problem: Acute (5) Fluid retention Problem: Acute (6) ELENA (acute kidney injury) Problem: Acute (7) BMI 40.0-44.9, adult Problem: Chronic (8) Hypertension Problem: Chronic Qualifiers: Hypertension type: essential hypertension Qualified Code(s): I10 - Essential (primary) hypertension (9) Diabetes Problem: Chronic Qualifiers: Diabetes mellitus type: type 2 Diabetes mellitus intermediate school teacher insulin use: without fdc use Diabetes mellitus complication status: without complication Qualified Code(s): E11.9 - Type 2 diabetes mellitus without complications (10) Obesity Problem: Chronic (11) Cardiorenal syndrome Problem: Acute
[2021-03-18] MEDS: SIMVASTATIN 20 MG TABLET PO SCH (21:38)
[2021-03-19] MEDS: METHYLPREDNISOLONE SOD SUCC/PF 125 MG/2 ML VIAL IV SCH ×2 (03:35→10:11)
[2021-03-19] MEDS: INSULIN LISPRO 100 UNITS/ML VIAL SC SCH ×2 (07:57→11:50)
[2021-03-19 09:03] LABS: Hematocrit 57.7 % (42.0-52.0); Hemoglobin 17.1 gm/dL (13.5-18.0); Mean Corpuscular Hemoglobin 27.3 pg (27-31); Mean Corpuscular Hgb Conc 29.6 g/dl (32-36); Neutrophil # 8.1 K/mm3 (1.3-6.0); Neutrophil % 91.8 % (42-75.0); Platelet Count 139 K/mm3 (150-450); Red Blood Count 6.27 M/mm3 (4.7-6.0); Red Cell Distribution Width 17.2 % (11.5-14.0); White Blood Count 8.8 K/mm3 (4.0-10.5)
[2021-03-19 09:11] LABS: Anion Gap 9.3 mmol/L (6.8-13.8); BUN/Creatinine Ratio 39.2 (9.0-21.6); Calcium * 8.9 mg/dL (7.9-10.9); Carbon Dioxide 35.5 mmol/L (24-32.6); Potassium 5.8 mmol/L (3.4-4.6)
[2021-03-19] MEDS: PIOGLITAZONE HCL 15 MG TABLET PO SCH (09:59)
[2021-03-19] MEDS: glipiZIDE 2.5 MG TAB.SR.24H PO SCH (10:00)
[2021-03-19] MEDS: HYDROCHLOROTHIAZIDE 12.5 MG CAPSULE PO SCH (10:00)
[2021-03-19] MEDS: FUROSEMIDE 10 MG/ML VIAL IV SCH (10:00)
[2021-03-19] MEDS ORDERED: SODIUM POLYSTYRENE SULFON/SORB 15 G/60 ML ORAL.SUSP PO ONE (10:04)
--- NOTE | 2021-03-19 14:46 | DS ---
(1) Acute hypercapnic respiratory failure Problem: Resolved (2) Acute CHF Problem: Ruled-out (3) Pneumonia Problem: Acute (4) COPD (chronic obstructive pulmonary disease) Problem: Resolved Qualifiers: COPD type: COPD with acute exacerbation Qualified Code(s): J44.1 - Chronic obstructive pulmonary disease with (acute) exacerbation (5) Fluid retention Problem: Chronic (6) ELENA (acute kidney injury) Problem: Resolved (7) BMI 40.0-44.9, adult Problem: Chronic (8) Hypertension Problem: Chronic Qualifiers: Hypertension type: essential hypertension Qualified Code(s): I10 - Essential (primary) hypertension (9) Diabetes Problem: Chronic Qualifiers: Diabetes mellitus type: type 2 Diabetes mellitus local [employer] insulin use: without 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 Cruz is a 60-year-old gentleman who presented to the hospital with acute hypercapnic respiratory failure, initially satting 47% on room air and his CO2 on blood gas was found to be 97. Patient has an undiagnosed history of COPD and appeared to be and heart failure based upon his BNP levels as well as his clinical picture. Significant swelling up to just below his knees bilaterally that were taught and nonpitting because of the edema. Patient's kidney function was normal 3 months earlier and was significantly deteriorated upon this initial visit. His creatinine at baseline is close to 1.0 and his GFR is normally in the low 80s range, here his initial GFR was 39 and his creatinine was 1.9. He received 80 mg of IV Lasix initially and his creatinine went up to 2.2 and his GFR dropped to 33. Patient was also requiring BiPAP to help with off the CO2 as well as maintain oxygen levels. Initial pH was 7.13. While here patient continued off and on with the BiPAP and his pH improved to 7.34 on day of discharge but his CO2 stabilized at just around 70 which I think is probably close to his baseline. He did get down as low as 59 but the moment he was off BiPAP it was back up to 66 and then as high as 78. On discharge his CO2 was 72 but this was measured after being off BiPAP all night and only on 2 L nasal cannula. Initial thought that again this was a CHF exacerbation with significant swelling and fluid overload leading to cardiorenal syndrome. His heart was under strain due to his elevated BNP but his vital signs remained stable while here. Patient was started on Lasix and Bumex for 3 days which significantly improved his kidney function to where he is creatinine was back to 1.02 and his GFR was 79. Echocardiogram of his heart showed mild systolic dysfunction but had a preserved ejection fraction and no global wall abnormality seen. No significant valvular disease noted as well. Patient diuresed well, was in a little over 15 pounds of fluid weight and his breathing did improve and his swelling in his legs did improve though he still had 2+ pitting edema to up to his knees bilaterally. Patient was breathing easier though and stated his legs did not hurt near as much. Patient also likely has an undiagnosed history of COPD as he is a [id number] history. Initial chest x-ray showed poor intake and very small lung spaces but there was concern for possible right lower lobe infiltrate. Due to likely COPD issues patient was started on Levaquin. IV steroids were held initially due to this look like a CHF picture and patient was improving with diuresis. Patient did hit a wall though and so once his kidney function improved patient was started on Solu-Medrol IV. This continued to help his breathing and overall patient has again stabilized. Patient will need significant follow-up in regards to his COPD which is exacerbation appears to have resolved and he appears to be back to his new baseline. Patient has been dealing with shortness of breath and swelling for months and so unsure of what his baseline will be in the future the right now patient is requiring 2 L of oxygen via nasal cannula to maintain his sats in the low 90s which is very well him to be due to his COPD and hypercapnia. Patient will be discharged home with oxygen and will need work-up for likely a BiPAP to be worn nightly to keep his CO2 levels and check. Patient's white count was always within normal limits and aside from an elevated potassium, his CHEM panel was unremarkable minus his renal issues that he was having. On discharge patient's potassium in the morning was 5.8 but did receive Lasix, insulin, and Kayexalate. Repeat potassium came back at 5.1. Due to patient's obesity and deconditioning with officially diagnosis of COPD, patient will be discharged home with home health. Patient is in need of fdc to help with his new medications, vital sign monitoring, diagnosis management education, and help with follow-up here at the hospital. Patient is also in need of physical therapy due to significant deconditioning and mobility issues, gait training, and generalized strengthening. The need for home health care skilled services is directly related to the time spent [id number] with the patient during his stay here. Patient has an appointment with cardiology at [facility] in 2 weeks. Patient will follow up with me in 1 week in which he will be started on maintenance COPD medications. Patient will be sent home on Levaquin and prednisone for the next week. Patient will also be sent home on Lasix and will need to repeat CHEM panel upon his next visit. Patient encouraged to stay away from potassium rich foods including bananas, carrots, and most juices. Patient will need to keep his fluid intake to roughly 2000 cc of free fluid a day to help with his fluid overload until he can be seen and monitored again. Patient will need to watch his weight and notify my clinic of any significant increased weight or shortness of breath. Repeat chest x-ray on the day before showed increased airspace showing that he is diuresing well but also showed a small likely pleural effusion in the right lower lobe. This should continue to improve with diuresis and fluid loss. He will likely need a repeat chest x-ray in a month or so. Again patient's vital signs have been fairly stable while here. Mild hypotensive issues on his third day which we held his blood pressure medications and diuretic medicines. This has since returned to normal and his blood pressure has been great. Patient is also been mildly tachycardic at times but mostly has been between the 80s and 90s during his stay here. Patient will reconnect with his PCP once his PCP returns from his leave. Patient is more than welcome to follow-up with me as needed though in regards to any of these issues that I addressed while here in the hospital. 2 hours critical care time spent with the patient today, discussing his case with case management, developing a treatment plan, setting up follow-up appointments and referrals, managing his labs and medications, and dictating this note. Procedures Performed: none Results and Findings: Lab Pending Results 03/15/21 12:29: pCO2 89.8 H*, pO2 73.5 L, HCO3 29.1 H, Total CO2 31.9 H, Base Excess -3.8 L, ABG pH 7.13 L*, ABG O2 Sat (Measured) 88.7 L 03/15/21 12:40: WBC 13.8 H, RBC 6.50 H, Hgb 18.2 H, Hct 59.9 H, MCV 92.2, MCH 28.0, MCHC 30.4 L, RDW 18.4 H, Plt Count 292, MPV 9.9, Immature Gran % (Auto) 0.50 H, Immature Gran # (Auto) 0.07 H, Neutrophils % 87.5 H, Lymphocytes % 4.6 L, Monocytes % 7.2, Eosinophils % 0.0, Basophils % 0.2, Nucleated RBC % 0.0, Neutrophils # 12.1 H, Lymphocytes # 0.64 L, Monocytes # 1.0, Eosinophils # 0.0, Absolute Basophils 0.0 03/15/21 12:40: Sodium 132, Plasma Sodium 134, Potassium 5.3 H D, Chloride 96 L, Carbon Dioxide 29.0, Anion Gap 12.3, BUN 58 H D, Creatinine 1.90 H D, Est GFR (Non-Af Amer) 39 L D, BUN/Creatinine Ratio 30.5 H, Random Glucose 203 H, Calcium 8.7, Calcium Adj for Albumin 9.1, Total Bilirubin 0.5, AST 16, ALT 33, Alkaline Phosphatase 59, Troponin I 0.033, B-Natriuretic Peptide 7066 H, Total Protein 6.8, Albumin 3.1 L 03/15/21 12:40: D-Dimer 0.53 H 03/15/21 13:31: SARS-CoV-2 (PCR) Not detected 03/15/21 14:05: pCO2 77.6 H*, pO2 88.6, HCO3 28.6 H, Total CO2 31.0 H, Base Excess -2.8 L, ABG pH 7.18 L*, ABG O2 Sat (Measured) 94.2 03/15/21 20:05: pCO2 80.8 H*, pO2 83.5, HCO3 30.6 H, Total CO2 33.1 H, Base Excess -0.9, ABG pH 7.20 L, ABG O2 Sat (Measured) 93.3 L 03/16/21 06:10: WBC 13.8 H, RBC 5.93, Hgb 16.4, Hct 55.2 H, MCV 93.1, MCH 27.7, MCHC 29.7 L, RDW 17.7 H, Plt Count 193, MPV 10.7, Neutrophils % (Manual) 77 H, Lymphocytes % (Manual) 11 L, Monocytes % (Manual) 12 H, Neutrophils # (Manual) 10.6 H, Lymphocytes # (Manual) 1.5, Monocytes # (Manual) 1.7 H, Platelet Estimate Normal, RBC Morphology Normal 03/16/21 06:10: Sodium 134, Plasma Sodium 134, Potassium 5.4 H, Chloride 98, Carbon Dioxide 31.7, Anion Gap 9.7, BUN 68 H, Creatinine 2.16 H, Est GFR (Non-Af Amer) 33 L, BUN/Creatinine Ratio 31.5 H, Random Glucose 115 H D, Calcium 7.8 L 03/16/21 08:55: pCO2 58.7 H, pO2 84.0, HCO3 26.0, Total CO2 27.9 H, Base Excess -2.2 L, ABG pH 7.27 L, ABG O2 Sat (Measured) 94.7 03/16/21 18:00: pCO2 66.9 H, pO2 68.6 L, HCO3 28.6 H, Total CO2 30.7 H, Base Excess -0.8, ABG pH 7.25 L, ABG O2 Sat (Measured) 90.3 L 03/16/21 18:00: Sodium 134, Plasma Sodium 134, Potassium 4.3 D, Chloride 100, Carbon Dioxide 27.3, Anion Gap 11.0, BUN 69 H, Creatinine 1.72 H D, Est GFR (Non-Af Amer) 43 L D, BUN/Creatinine Ratio 40.1 H, Random Glucose 103, Calcium 7.2 L 03/17/21 05:57: pCO2 69.5 H, pO2 81.2 L, HCO3 32.5 H, Total CO2 34.7 H, Base Excess 3.1 H, ABG pH 7.29 L, ABG O2 Sat (Measured) 94.3 03/17/21 06:45: WBC 11.1 H, RBC 6.11 H, Hgb 16.8, Hct 56.3 H, MCV 92.1, MCH 27.5, MCHC 29.8 L, RDW 17.1 H, Plt Count 237, MPV 9.9, Immature Gran % (Auto) 0.50 H, Immature Gran # (Auto) 0.06 H, Neutrophils % 79.2 H, Lymphocytes % 8.6 L, Monocytes % 10.9 H, Eosinophils % 0.4, Basophils % 0.4, Nucleated RBC % 0.0, Neutrophils # 8.8 H, Lymphocytes # 0.95 L, Monocytes # 1.2 H, Eosinophils # 0.0, Absolute Basophils 0.0 03/17/21 06:45: Sodium 135, Plasma Sodium 135, Potassium 5.2 H D, Chloride 99, Carbon Dioxide 35.3 H, Anion Gap 5.9 L, BUN 72 H, Creatinine 1.58 H, Est GFR (No n-Af Amer) 48 L, BUN/Creatinine Ratio 45.6 H, Random Glucose 99, Calcium 8.4 03/17/21 21:32: pCO2 78.3 H*, pO2 84.9, HCO3 33.5 H, Total CO2 35.9 H, Base Excess 3.1 H, ABG pH 7.25 L, ABG O2 Sat (Measured) 94.3 03/18/21 06:30: WBC 10.0, RBC 6.10 H, Hgb 16.8, Hct 56.0 H, MCV 91.8, MCH 27.5, MCHC 30.0 L, RDW 17.1 H, Plt Count 267, MPV 9.9, Immature Gran % (Auto) 0.40, Immature Gran # (Auto) 0.04 H, Neutrophils % 77.5 H, Lymphocytes % 9.2 L, Monocytes % 12.3 H, Eosinophils % 0.3, Basophils % 0.3, Nucleated RBC % 0.0, Neutrophils # 7.7 H, Lymphocytes # 0.92 L, Monocytes # 1.2 H, Eosinophils # 0.0, Absolute Basophils 0.0 03/18/21 06:30: Sodium 138, Plasma Sodium 138, Potassium 4.9 H, Chloride 99, Carbon Dioxide 39.3 H, Anion Gap 4.6 L, BUN 60 H, Creatinine 1.26, Est GFR (Non- Af Amer) 62 D, BUN/Creatinine Ratio 47.6 H, Random Glucose 110, Calcium 9.0, Calcium Adj for Albumin 9.5, Total Bilirubin 0.7, AST 25, ALT 29, Alkaline Phosphatase 53, Total Protein 6.6, Albumin 3.0 L 03/18/21 08:55: pCO2 71.0 H*, pO2 55.7 L, HCO3 38.9 H, Total CO2 41.0 H, Base Excess 9.6 H, ABG pH 7.36, ABG O2 Sat (Measured) 86.6 L 03/19/21 07:18: pCO2 72.1 H*, pO2 61.2 L, HCO3 38.0 H, Total CO2 40.2 H, Base Excess 8.7 H, ABG pH 7.34 L, ABG O2 Sat (Measured) 89.1 L 03/19/21 08:56: WBC 8.8, RBC 6.27 H, Hgb 17.1, Hct 57.7 H, MCV 92.0, MCH 27.3, MCHC 29.6 L, RDW 17.2 H, Plt Count 139 L, MPV 11.0, Immature Gran % (Auto) 0.30, Immature Gran # (Auto) 0.03, Neutrophils % 91.8 H, Lymphocytes % 3.5 L, Monocytes % 4.0, Eosinophils % 0.3, Basophils % 0.1, Nucleated RBC % 0.0, Neutrophils # 8.1 H, Lymphocytes # 0.31 L, Monocytes # 0.4, Eosinophils # 0.0, Absolute Basophils 0.0 03/19/21 08:56: Sodium 138, Plasma Sodium 141, Potassium 5.8 H, Chloride 99, Carbon Dioxide 35.5 H, Anion Gap 9.3, BUN 40 H, Creatinine 1.02, Est GFR (Non-Af Amer) 79 D, BUN/Creatinine Ratio 39.2 H, Random Glucose 259 H D, Calcium 8.9 Discharge Location: Home Disposition: Home Health Service Home Health Agency: [facility] Home Health Condition: Stable Discharge Activity: Activity as tolerated Discharge Diet: Low fat/chol - 2000 mls of fluid per day Referrals: Zion Rizo MD [Primary Care Provider] - Two Weeks Victorino Meredith DO [Staff Physician] - One Week Problem Oriented Discharge Instructions to Patient/Family: Chronic Obstructive Pulmonary Disease, [id number] Additional Patient Instructions (free text): [facility] Home Health new at discharge, call report and fax discharge instructions, orders, and summary. Oxygen at 2 L nasal cannula during the day and 4 L with activity. Complete the pulse oximetry testing and return to [facility] as instructed. They will call you when the results have been read. Call [facility] with any questions phone number [phone] Follow up with (cardiology) at [facility] on WednesdayMarch 31 at 11 AM. F/U with Ailyn March 25 @ 10:30 am. Prescriptions (Any new or edited meds): Furosemide [Lasix] 40 mg PO DAILY #30 tab Transmission Status: Pending to [facility] Levofloxacin [Levaquin] 750 mg PO DAILY@1800 #7 tab Transmission Status: Pending to [facility] predniSONE [Prednisone] 2 tab PO DAILY #14 tab Transmission Status: Pending to [facility] Complete Home Medications List: Complete Home Medication List: atorvastatin 10 mg tablet 10 mg PO DAILY #30 tab 05/21/20 dapagliflozin 10 mg-metformin ER 1,000 mg tablet,extended release 24hr 1 tab PO DAILY #30 ea 05/21/20 lisinopril 10 mg tablet 10 mg PO DAILY #30 tab 05/21/20 pioglitazone 45 mg tablet 45 mg PO DAILY #30 tab 05/21/20 glipizide 2.5 mg tablet, extended release 24 hr 2.5 mg PO DAILY #30 tab 06/14/20 hydrochlorothiazide 12.5 mg capsule 12.5 mg PO DAILY #30 cap 10/17/20 Furosemide [Lasix] 40 mg PO DAILY #30 tab 03/19/21 Levofloxacin [Levaquin] 750 mg PO DAILY@1800 #7 tab 03/19/21 predniSONE [Prednisone] 2 tab PO DAILY #14 tab 03/19/21 Forms: Patient Portal Registration
[2021-03-19 15:13] LABS: Anion Gap 5.8 mmol/L (6.8-13.8); BUN/Creatinine Ratio 35.3 (9.0-21.6); Calcium * 9.4 mg/dL (7.9-10.9); Carbon Dioxide 44.3 mmol/L (24-32.6); Estimated Creat Clear 57.4; Potassium 5.1 mmol/L (3.4-4.6)
[2021-03-19 16:49] VITALS: BP 109/48
== END 2021-03-19 17:30 | disposition home health service (06) | DRG 291 ==
LOC: ER 12:08 → MS 14:44
PROVIDERS: ADMIT Family Medicine; ATTEND Allergy & Immunology